=== PATIENT | male | born 1970 | race African-American/Black ===

== ENCOUNTER 2018-06-03 12:03 | Emergency (ER) | payer MEDICARE, MEDICAID ==
[~2018-06-03] VITALS: Ht 180.3 cm; Wt 74.8 kg
[2018-06-03] MEDS ORDERED: KETOROLAC 15 MG/ML VIAL. IV ONE (13:15)
[2018-06-03 13:32] LABS: BASO # 0.1 x10^3/uL (0.0-0.2); BASO % 1 % (0-3); EOS # 0.1 x10^3/uL (0.0-0.7); EOS % 1 % (0-3); HEMATOCRIT 36.1 % (39.0-53.0); HEMOGLOBIN 12.3 g/dL (13.0-17.5); LYMPH # 1.9 x10^3/uL (1.0-4.8); LYMPH % 9 % (24-48); MEAN CORPUSCULAR HEMOGLOBIN 32 pg (25-35); MEAN CORPUSCULAR HGB CONC 34 g/dL (31-37); MEAN CORPUSCULAR VOLUME 94 fL (79-100); MONO # 1.5 x10^3/uL (0.0-1.1); MONO % 7 % (0-9); NEUT # 16.6 x10^3uL (1.8-7.7); NEUT % 82 % (31-73); PLATELET COUNT 213 x10^3/uL (140-400); RED BLOOD COUNT 3.83 x10^6/uL (4.30-5.70); RED CELL DISTRIBUTION WIDTH 16.4 % (11.5-14.5); WHITE BLOOD COUNT 20.3 x10^3/uL (4.0-11.0)
--- NOTE | 2018-06-03 13:54 | PHYS DOC ---
Past Medical History Past Medical History: Other Additional Past Medical Histor: PT PARALYZED Past Surgical History: No Surgical History Adult General Chief Complaint Chief Complaint: TESTICULAR PAIN OR INJURY HPI HPI Patient is a 48 year old AA male who presents to the emergency room with complaints of right testicle pain for the last 3 days. Patient states he is a paraplegic and that he self catheterizes. He denies any concerns of an STD. Patient also denies any foul-smelling urine, hematuria, abdominal pain, or lower back pain. Patient states that his right testicle has been swollen, warm, and tender he denies any injury, fever, nausea, or vomiting. Review of Systems Review of Systems Constitutional: Denies fever or chills [] GI: Denies abdominal pain, nausea, vomiting, or diarrhea [] : Denies dysuria or hematuria; pt reports that he self catheterizes as he is paraplegic since 2003 history of present illness [] Musculoskeletal: Denies back pain or joint pain [] Integument: Denies rash or skin lesions [] Neurologic: Denies headache, focal weakness or sensory changes, hx of paraplegia since 2003 [] All other systems were reviewed and found to be within normal limits, except as documented in this note. Current Medications Current Medications Current Medications Medications (Trade) Dose Ordered Sig/Billie Start Time Stop Time Status Last Admin Dose Admin Ceftriaxone Sodium 50 ml @ 100 mls/hr 1X ONCE 06/03/18 14:45 06/03/18 15:14 DC 06/03/18 15:14 100 MLS/HR Fentanyl Citrate (Fentanyl 2ml Vial) 50 mcg 1X ONCE 06/03/18 14:00 06/03/18 14:01 DC 06/03/18 14:08 50 MCG Ketorolac Tromethamine (Toradol 15mg Vial) 15 mg 1X ONCE 06/03/18 13:15 06/03/18 13:19 DC 06/03/18 13:29 15 MG Allergies Allergies Allergies Coded Allergies Type Severity Reaction Last Updated Verified No Known Drug Allergies 06/03/18 No Physical Exam Physical Exam Constitutional: Well developed, well nourished, no acute distress, non-toxic appearance. [] HENT: Normocephalic, atraumatic, bilateral external ears normal, nose normal. [] Eyes: PERRLA, conjunctiva normal, no discharge. [] Neck: Normal range of motion, no tenderness, supple, no stridor. [] Abdomen: Bowel sounds normal, soft, no tenderness, no masses, no pulsatile masses. [] : R testicle edematous, warm, and tender to palpation. negative Phren's sign Skin: Warm, dry, no rash. [] Neurologic: Alert and oriented X 3, normal motor function and normal sensory function of upper extremities, pt is a panplegic Psychologic: Affect normal, judgement normal, mood normal. [] Current Patient Data Vital Signs Vital Signs Date Time Temp Pulse Resp B/P (MAP) Pulse Ox O2 Delivery O2 Flow Rate FiO2 06/03/18 14:38 16 96 Room Air 06/03/18 12:22 98.6 86 115/72 (86) 98.6 Lab Values Laboratory Tests Test 06/03/18 13:20 06/03/18 14:00 White Blood Count 20.3 x10^3/uL (4.0-11.0) H Red Blood Count 3.83 x10^6/uL (4.30-5.70) L Hemoglobin 12.3 g/dL (13.0-17.5) L Hematocrit 36.1 % (39.0-53.0) L Mean Corpuscular Volume 94 fL (79-100) Mean Corpuscular Hemoglobin 32 pg (25-35) Mean Corpuscular Hemoglobin Concent 34 g/dL (31-37) Red Cell Distribution Width 16.4 % (11.5-14.5) H Platelet Count 213 x10^3/uL (140-400) Neutrophils (%) (Auto) 82 % (31-73) H Lymphocytes (%) (Auto) 9 % (24-48) L Monocytes (%) (Auto) 7 % (0-9) Eosinophils (%) (Auto) 1 % (0-3) Basophils (%) (Auto) 1 % (0-3) Neutrophils # (Auto) 16.6 x10^3uL (1.8-7.7) H Lymphocytes # (Auto) 1.9 x10^3/uL (1.0-4.8) Monocytes # (Auto) 1.5 x10^3/uL (0.0-1.1) H Eosinophils # (Auto) 0.1 x10^3/uL (0.0-0.7) Basophils # (Auto) 0.1 x10^3/uL (0.0-0.2) Segmented Neutrophils % 85 % (35-66) H Band Neutrophils % 3 % (0-9) Lymphocytes % 8 % (24-48) L Monocytes % 2 % (0-10) Eosinophils % 2 % (0-5) Platelet Estimate Adequate (ADEQUATE) Urine Collection Type Unknown Urine Color [place] Urine Clarity Cloudy Urine pH 6.0 Urine Specific Triplett >=1.030 Urine Protein 30 mg/dL (NEG-TRACE) Urine Glucose (UA) Negative mg/dL (NEG) Urine Ketones (Stick) Trace mg/dL (NEG) Urine Blood Moderate (NEG) Urine Nitrite Positive (NEG) Urine Bilirubin Small (NEG) Urine Urobilinogen Dipstick 2.0 mg/dL (0.2 mg/dL) Urine Leukocyte Esterase Large (NEG) Urine RBC 6-10 /HPF (0-2) Urine WBC Tntc /HPF (0-4) Urine Bacteria Many /HPF (0-FEW) Laboratory Tests 06/03/18 13:20 EKG EKG [] Radiology/Procedures Radiology/Procedures PROCEDURE: TESTICULAR/SCROTUM Ultrasound of the scrotum HISTORY: Right testicle pain for 3 days. COMPARISON: None RIGHT: Right testicle * Size: 4.7 cm length. * Blood supply: Intact blood flow. * Appearance: Homogeneous echotexture without focal lesion Right epididymis: Mildly hypervascular and mildly enlarged. Miscellaneous findings: Complex moderate to large hydrocele with internal septations. LEFT: Left testicle * Size: 3.4 cm length. * Blood supply: Intact blood flow. * Appearance: Homogeneous echotexture without focal lesion Left epididymis: Unremarkable Miscellaneous findings: Moderate size hydrocele IMPRESSION: 1. Right epididymis appears mildly enlarged and hypervascular, suspicious for epididymitis. Right testicle is also mildly enlarged compared with the left, uncertain significance given there is no abnormal vascularity or echotexture, but mild orchitis could still be considered. It is also possible but the left testicle is relatively small, however. 2. Moderate bilateral hydroceles. The right hydrocele is complex with internal septations.[] Course & Med Decision Making Course & Med Decision Making Pertinent Labs and Imaging studies reviewed. (See chart for details) Dx: UTI, R epididymitis Ddx: testicular torsion, abscess, cellulitis Pt was given 1 gm of rocephin IV in the ER. He also received 15 mg of IV toradol and 50 mcg of Fentanyl in the ER for pain relief. U/S revealed epididymitis possible orchitis of R testicle. UA was positive for UTI. Prescriptions for levaquin and hydrocodone written. Pt instructed to increase clear fluids. Follow up with your primary care doctor next week. return to the ER if symptoms worsen. Patient verbalized an understanding of home care, medications, follow-up, and return to ED instructions and was in agreement with the plan of care. [] Dragon Disclaimer Dragon Disclaimer This electronic medical record was generated, in whole or in part, using a voice recognition dictation system. Departure Departure Impression: Primary Impression: Urinary tract infection Additional Impression: Epididymitis, right Disposition: 01 HOME, SELF-CARE Condition: STABLE Referrals: MICHELE RIVER MD (PCP) Patient Instructions: Epididymitis, Urinary Tract Infection, [id number] Additional Instructions: Fill prescription and use as directed. Increase clear fluids. Follow up with your primary care doctor next week. return to the ER if symptoms worsen. Scripts Hydrocodone Bit/Acetaminophen (HYDROCODONE-APAP 5-325 ) 1 Each Tablet 1 TAB PO PRN Q6HRS PRN for PAIN for 4 Days, #12 TAB 0 Refills Prov: VALARIE BERNARDO CHEMICAL DEPENDENCY ATTENDANT 06/03/18 Levofloxacin (LEVAQUIN) 500 Mg Tablet 1 TAB PO DAILY, #10 TAB 0 Refills Prov: VALARIE BERNARDO APRN 06/03/18 Problem Qualifiers Primary Impression: Urinary tract infection Urinary tract infection type: site unspecified Hematuria presence: without hematuria Qualified Codes: N39.0 - Urinary tract infection, site not specified VALARIE BERNARDO CHEMICAL DEPENDENCY ATTENDANT Jun 03, 2018 13:53
[2018-06-03] MEDS ORDERED: fentaNYL PF VIAL 100 MCG/2 ML VIAL IV ONE (14:00)
--- NOTE | 2018-06-03 14:07 | RAD ---
Ultrasound of the scrotum HISTORY: Right testicle pain for 3 days. COMPARISON: None RIGHT: Right testicle * Size: 4.7 cm length. * Blood supply: Intact blood flow. * Appearance: Homogeneous echotexture without focal lesion Right epididymis: Mildly hypervascular and mildly enlarged. Miscellaneous findings: Complex moderate to large hydrocele with internal septations. LEFT: Left testicle * Size: 3.4 cm length. * Blood supply: Intact blood flow. * Appearance: Homogeneous echotexture without focal lesion Left epididymis: Unremarkable Miscellaneous findings: Moderate size hydrocele IMPRESSION: 1. Right epididymis appears mildly enlarged and hypervascular, suspicious for epididymitis. Right testicle is also mildly enlarged compared with the left, uncertain significance given there is no abnormal vascularity or echotexture, but mild orchitis could still be considered. It is also possible but the left testicle is relatively small, however. 2. Moderate bilateral hydroceles. The right hydrocele is complex with internal septations. Electronically signed by: Serg Salazar MD (06/03/2018 2:04 PM) [id number]
[2018-06-03 14:09] LABS: BILIRUBIN,URINE SMALL (NEG); CLARITY,URINE CLOUDY; COLOR,URINE AMBER; NITRITE,URINE POSITIVE (NEG); PROTEIN,URINE 30 mg/dL (NEG-TRACE)
[2018-06-03 14:23] LABS: BACTERIA,URINE MANY /HPF (0-FEW); WBC,URINE TNTC /HPF (0-4)
[2018-06-03 14:28] LABS: % BANDS 3 % (0-9); % EOS 2 % (0-5); % LYMPHS 8 % (24-48); % MONOS 2 % (0-10); % SEGS 85 % (35-66); PLT ESTIMATE ADEQUATE (ADEQUATE)
[2018-06-03] MEDS ORDERED: LEVO500T59 PO (15:24)
[2018-06-03] MEDS ORDERED: HYDR-2758 PO (15:39)
[2018-06-03 15:45] VITALS: BP 143/89
== END 2018-06-03 15:45 | disposition home or self-care (01) ==
LOC: ER 12:03
DX: N39.0 Urinary tract infection, site not specified (principal); N45.1 Epididymitis; N43.3 Hydrocele, unspecified
CPT/HCPCS: 36415; 76870; 81001; 85007; 85025; 87086; 96365; 96375; 99285; J0690; J1885; J3010; 87186

== ENCOUNTER → 2021-08-04 | Outpatient (CLI) | payer MEDICARE, MEDICAID ==
[~2021-08-04] MED LIST: HYDR-2761 PO; LEVO500T59 PO
--- NOTE | 2021-08-04 16:06 | RAD ---
EXAM: 1. BILATERAL DIGITAL DIAGNOSTIC MAMMOGRAPHY. 2. RIGHT BREAST ULTRASOUND. HISTORY: Right breast pain after injury. TECHNIQUE: Bilateral full field digital images were obtained in CC and MLO projections with tomosynth esis. Computer-aided detection was applied. Sonography of the right breast was also performed. COMPARISON: None available. This is interpreted as a baseline study. COMPOSITION: C. The breasts are heterogeneously dense, which may obscure small masses. FINDINGS: There is moderate to severe gynecomastia on the right. It is mild on the left. A skin marke r is placed superior to the right nipple at the site of tenderness. There is no underlying mammograph ic abnormality. There are no suspicious masses, microcalcifications or architectural distortion. On today's ultrasound, there is extensive subareolar ductal tissue consistent with gynecomastia. Ther e is no suspicious mass or architectural distortion. Images of the right axilla reveal no abnormal ly mph nodes. BI-RADS CATEGORY 2: Benign. RECOMMENDATION: 1. Gynecomastia on the right greater than left. Recommend ongoing clinical follow-up of gynecomastia and breast tenderness. Electronically signed by: Ruben Dietz MD (08/04/2021 4:03 PM) [id number]
== END ==
LOC: MAMMO 13:00
PROVIDERS: ATTEND Family Medicine
DX: N62 Hypertrophy of breast (principal); N64.4 Mastodynia
CPT/HCPCS: 76641; 77066; G0279; 77062